=== PATIENT | female | born 1950 | race Caucasian/White ===

== ENCOUNTER 2018-05-21 12:21 | Emergency (ER) | payer MEDICARE ==
[~2018-05-21] VITALS: Ht 165.1 cm; Wt 54.4 kg
[2018-05-21 12:59] LABS: BASOPHILS % (AUTO) 0.1 % (0-1); EOSINOPHILS # (AUTO) 0.2 X10'3 (0-0.9); EOSINOPHILS % (AUTO) 1.4 % (0-6); HEMATOCRIT 37.5 % (35.0-45.0); LYMPHOCYTES # (AUTO) 0.7 X10'3 (1.1-4.8); LYMPHOCYTES % (AUTO) 4.3 % (21-51); MEAN CORPUSCULAR HEMOGLOBIN 29.5 PG (27.0-31.0); MEAN CORPUSCULAR HGB CONC 34.7 % (33.0-36.5); MEAN CORPUSCULAR VOLUME 84.9 FL (78-98); MONOCYTES # (AUTO) 0.4 X10'3 (0-0.9); MONOCYTES % (AUTO) 2.3 % (2-12); NEUTROPHILS # (AUTO) 15.4 X10'3 (1.8-7.7); NEUTROPHILS % (AUTO) 91.9 % (42-75); PLATELET COUNT 296 X10'3 (140-440); RED BLOOD COUNT 4.41 X10'6 (4.20-5.60); WHITE BLOOD COUNT 16.8 X10'3 (4.5-11.0)
[2018-05-21 13:05] LABS: CLARITY,URINE CLEAR (Clear); COLOR,URINE YELLOW (Yellow); GLUCOSE, URINE NEGATIVE (Neg); KETONES,URINE NEGATIVE (Neg); LEUKOCYTE ESTERASE ,URINE TRACE (Neg); NITRITES, URINE NEGATIVE (Neg); OCCULT BLOOD,URINE TRACE-INTACT (Neg); PROTEIN,URINE NEGATIVE (Neg); UROBILINOGEN,URINE 0.2 E.U/dL (0.2-1.0)
[2018-05-21 13:22] LABS: ALANINE AMINOTRANSFERASE 28 U/L (12-78); ALBUMIN 3.7 G/DL (3.4-5.0); ALKALINE PHOSPHATASE 89 IU/L (46-116); ANION GAP 10 (8-16); ASPARTATE AMINO TRANSFERASE 27 U/L (10-37); BILIRUBIN,TOTAL 0.5 MG/DL (0.1-1.0); BLOOD UREA NITROGEN 16 MG/DL (7-18); BUN/CREATININE RATIO 20.8 (6.6-38.0); CALCIUM 8.8 MG/DL (8.5-10.1); CHLORIDE 103 MMOL/L (99-107); CREATININE 0.77 MG/DL (0.40-0.90); GLUCOSE 105 MG/DL (70-104); POTASSIUM 4.1 MMOL/L (3.5-5.1); SODIUM 140 MMOL/L (135-145); TOTAL CARBON DIOXIDE 26.7 MMOL/L (24-32); eGFR 75 ML/MIN
[2018-05-21 13:26] LABS: UA COLLECTION TYPE CLN CATCH MIDSTREAM
[2018-05-21 13:27] LABS: BACTERIA,URINE FEW /HPF (Neg); MUCUS STRANDS FEW /LPF (Neg); RBC,URINE 0-2 /HPF (0-2); SQUAMOUS EPITHELIAL CELL,UR FEW /LPF (FEW)
[2018-05-21 13:36] LABS: ALBUMIN/GLOBULIN RATIO 1.1 (1.1-1.5); TOTAL PROTEIN 7.1 G/DL (6.4-8.2)
[2018-05-21] MEDS ORDERED: normal saline 1000ML IV soln IVB ONE (13:40)
[2018-05-21] MEDS ORDERED: ketorolac trometh. 30mg/ml inj. IV ONE (13:40)
[2018-05-21] MEDS ORDERED: ibuprofen 200mg tablet PO ONE ×2 (14:35→14:45)
[2018-05-21] MEDS ORDERED: CefTRIAXone 2gm/D5W 50ml 50 ML IV ONE (14:50)
[2018-05-21 15:55] VITALS: BP 141/62
[2018-05-21] MEDS ORDERED: CEPH500C5 PO ×2 (16:20→16:24)
[2018-05-21] MEDS ORDERED: ONDA4TAB12 PO (16:26)
== END 2018-05-21 16:51 | disposition home or self-care (01) ==
LOC: ER 12:21
DX: N39.0 Urinary tract infection, site not specified (principal); Z79.2 Long term (current) use of antibiotics; Z79.899 Other long term (current) drug therapy
CPT/HCPCS: 36415; 71045; 80053; 81001; 83605; 84145; 85025; 87040; 87088; 96365; 96375; 99285; J0696; J1885; J7030

== ENCOUNTER 2020-09-10 13:15 | Observation (INO) | payer MEDICARE ==
[~2020-09-10] VITALS: Ht 165.1 cm; Wt 49.5 kg
[~2020-09-10 13:15] MED LIST: ONDA4TAB12 PO
[2020-09-10] MEDS ORDERED: ondansetron/PF 4mg/2ml inj IV ONE ×2 (15:45→17:15)
[2020-09-10] MEDS ORDERED: ketorolac trometh. 30mg/ml inj. IV ONE (15:45)
[2020-09-10] MEDS ORDERED: normal saline 1000ML IV soln IVB ONE (15:45)
--- NOTE | 2020-09-10 15:56 | NUR ---
pt ambulated to ct with activities counselor
--- NOTE | 2020-09-10 16:04 | NUR ---
returns from ct
[2020-09-10 16:14] LABS: BASOPHILS % (AUTO) 0.1 % (0-1); EOSINOPHILS % (AUTO) 0 % (0-6); HEMATOCRIT 40.2 % (35.0-45.0); HEMOGLOBIN 13.4 g/dl (12.0-16.0); LYMPHOCYTES # (AUTO) 0.4 X10'3 (1.1-4.8); LYMPHOCYTES % (AUTO) 3.9 % (21-51); MEAN CORPUSCULAR HEMOGLOBIN 29.9 PG (27.0-31.0); MEAN CORPUSCULAR HGB CONC 33.4 g/dL (33.0-36.5); MEAN CORPUSCULAR VOLUME 89.4 FL (78-98); MEAN PLATELET VOLUME 7.6 FL (7.4-10.4); MONOCYTES # (AUTO) 0.3 X10'3 (0-0.9); MONOCYTES % (AUTO) 2.4 % (2-12); NEUTROPHILS # (AUTO) 10.6 X10'3 (1.8-7.7); NEUTROPHILS % (AUTO) 93.6 % (42-75); PLATELET COUNT 216 X10'3 (140-440); RED CELL DISTRIBUTION WIDTH 13.1 % (11.5-14.5); WHITE BLOOD COUNT 11.3 X10'3 (4.5-11.0)
[2020-09-10 16:24] LABS: CLARITY,URINE CLOUDY (Clear); COLOR,URINE ORANGE (Yellow)
[2020-09-10 16:27] LABS: ALANINE AMINOTRANSFERASE 21 U/L (12-78); ALBUMIN 3.8 G/DL (3.4-5.0); ALBUMIN/GLOBULIN RATIO 1.2 (1.1-1.5); ALKALINE PHOSPHATASE 86 IU/L (46-116); ANION GAP 12 (8-16); ASPARTATE AMINO TRANSFERASE 27 U/L (10-37); BILIRUBIN,TOTAL 0.9 MG/DL (0.1-1.0); BLOOD UREA NITROGEN 18 MG/DL (7-18); BUN/CREATININE RATIO 19.8 (6.6-38.0); CALCIUM 9.2 MG/DL (8.5-10.1); CHLORIDE 104 MMOL/L (99-107); CREATININE 0.91 MG/DL (0.40-0.90); GLUCOSE 89 MG/DL (70-104); LIPASE 153 U/L (73-393); POTASSIUM 3.4 MMOL/L (3.5-5.1); SODIUM 140 MMOL/L (135-145); TOTAL CARBON DIOXIDE 24.1 MMOL/L (24-32); eGFR 61 ML/MIN
[2020-09-10 16:28] LABS: UA COLLECTION TYPE URINAL
[2020-09-10 16:31] LABS: BACTERIA,URINE 4+ /HPF (Neg); MUCUS STRANDS FEW /LPF (Neg); SQUAMOUS EPITHELIAL CELL,UR FEW /LPF (FEW); WBC,URINE TNTC /HPF (0-4)
[2020-09-10] MEDS ORDERED: levoFLOXACIN-Levaquin 500mg/D5 100 ML IV ONE (17:15)
[2020-09-10] MEDS ORDERED: HYDROmorphone 1 mg/ml syringe IV ONE (17:15)
[2020-09-10] MEDS ORDERED: NO HOME MEDS (18:35)
[2020-09-10] MEDS ORDERED: magnesium 2GM in 50ml NS 50 ML IV PRN (19:25)
[2020-09-10] MEDS ORDERED: acetaminophen 325mg tablet PO PRN (19:25)
[2020-09-10] MEDS ORDERED: ondansetron/PF 4mg/2ml inj IV PRN (19:25)
[2020-09-10] MEDS ORDERED: morphine 2 MG/ML inj. syringe IV PRN ×2 (19:25→21:25)
[2020-09-10] MEDS ORDERED: potassium Cl 20 mEq SR tablet PO PRN (19:25)
[2020-09-10] MEDS ORDERED: HYDROcodone/acetaminophen 5mg/325mg tablet PO PRN (19:25)
[2020-09-10] MEDS ORDERED: magnesium 4gm in 100ml NS 100 ML IV PRN (19:25)
[2020-09-10] MEDS ORDERED: magnesium Cl slow-release 64mg tablet PO PRN (19:25)
[2020-09-10] MEDS ORDERED: potassium Cl 40MEQ/1/2NS 520ml 520 ML IV PRN ×2 (19:25)
[2020-09-10 21:00] VITALS: BP 101/57
--- NOTE | 2020-09-10 21:00 | NUR ---
Patient placed into bed. Bed in low and locked position. Call light placed within reach.
[2020-09-10] MEDS: normal saline 1000ml 1,000 ML IV SCH (21:14)
[2020-09-10] MEDS: morphine 4 MG/ML inj SYRINge IV PRN (21:33)
[2020-09-10] MEDS: potassium Cl 20 mEq SR tablet PO PRN (21:35)
[2020-09-10] MEDS: tamsulosin 0.4mg capsule PO SCH (21:35)
[2020-09-10] MEDS: K and/or MAG REPLACEMENT MC SCH (21:36)
[2020-09-10] MEDS: CefTRIAXone/D5W-Rocephin 1gm 50 ML IV SCH (21:37)
[2020-09-11] VITALS (18 sets, daily range): BP systolic 87–100; BP diastolic 36–65
[2020-09-11] MEDS: morphine 4 MG/ML inj SYRINge IV PRN ×6 (00:59→16:13)
[2020-09-11] MEDS: potassium Cl 20 mEq SR tablet PO PRN (01:05)
[2020-09-11] MEDS: normal saline 1000ml 1,000 ML IV SCH ×3 (06:38→20:58)
--- NOTE | 2020-09-11 06:38 | NUR ---
Problems reprioritized. Patient report given, questions answered & plan of care reviewed with Karolyn MCDOWELL.
[2020-09-11 06:47] LABS: BASOPHILS % (AUTO) 0.2 % (0-1); EOSINOPHILS % (AUTO) 0.1 % (0-6); HEMOGLOBIN 10.2 g/dl (12.0-16.0); LYMPHOCYTES # (AUTO) 0.6 X10'3 (1.1-4.8); LYMPHOCYTES % (AUTO) 5.5 % (21-51); MEAN CORPUSCULAR HEMOGLOBIN 30.4 PG (27.0-31.0); MEAN CORPUSCULAR VOLUME 89.4 FL (78-98); MONOCYTES # (AUTO) 0.7 X10'3 (0-0.9); NEUTROPHILS # (AUTO) 9.9 X10'3 (1.8-7.7); NEUTROPHILS % (AUTO) 88.2 % (42-75); PLATELET COUNT 180 X10'3 (140-440); RED BLOOD COUNT 3.35 X10'6 (4.20-5.60); RED CELL DISTRIBUTION WIDTH 13.2 % (11.5-14.5); WHITE BLOOD COUNT 11.2 X10'3 (4.5-11.0)
--- NOTE | 2020-09-11 06:48 | NUR ---
Patient in room [facility] 344A. I have received report from JEREMIAS CONKLIN and had the opportunity to ask questions and assume patient care.
[2020-09-11 06:58] LABS: ALBUMIN 2.5 G/DL (3.4-5.0); ANION GAP 6 (8-16); BLOOD UREA NITROGEN 19 MG/DL (7-18); CALCIUM 7.9 MG/DL (8.5-10.1); CHLORIDE 109 MMOL/L (99-107); CREATININE 0.73 MG/DL (0.40-0.90); GLUCOSE 97 MG/DL (70-104); MAGNESIUM 1.7 MG/DL (1.5-2.4); POTASSIUM 4.3 MMOL/L (3.5-5.1); SODIUM 140 MMOL/L (135-145); TOTAL CARBON DIOXIDE 24.9 MMOL/L (24-32); eGFR 79 ML/MIN
[2020-09-11] MEDS: CefTRIAXone/D5W-Rocephin 1gm 50 ML IV SCH (07:50)
[2020-09-11] MEDS: K and/or MAG REPLACEMENT MC SCH ×2 (08:00→20:00)
[2020-09-11] MEDS ORDERED: FLU VACC QS2020-21(6MOS UP)/PF 60 MCG/0.5 ML SYRINGE IMVAC ONE (10:00)
--- NOTE | 2020-09-11 14:35 | NUR ---
Low BMI trigger: BMI 18.2. Pt pending scaled wt this admit w/ normal strength and appears well-developed/wellnourished per ER note. To f/u 09/15 for initial assessment. Addendum: 09/11/20 at [address] Amended: Links added.
[2020-09-11] MEDS ORDERED: proCHLORperazine 10 MG/2 ml inj IV PRN (16:00)
[2020-09-11] MEDS ORDERED: morphine 4 MG/ML inj SYRINge IV PRN (16:00)
[2020-09-11] MEDS ORDERED: morphine 2 MG/ML inj. syringe IV PRN (16:00)
[2020-09-11] MEDS ORDERED: meperidine/PF 25mg/ml syringe IV PRN ×3 (16:00)
[2020-09-11] MEDS ORDERED: hydrALAZINE 20mg/ml inj. IV PRN (16:00)
[2020-09-11] MEDS ORDERED: ondansetron/PF 4mg/2ml inj IV PRN (16:00)
[2020-09-11] MEDS ORDERED: labetalol 20mg/4ml (5mg/ml) syringe IV PRN (16:00)
[2020-09-11] MEDS ORDERED: acetaminophen 1,000mg/100ml IV 100 ML IV PRN (16:00)
[2020-09-11] MEDS ORDERED: ringers solution, lacted 1,000 ML IV SCH (16:00)
[2020-09-11] MEDS ORDERED: dextrose 50%-water 50ml dispensing syringe IV ONE (16:46)
[2020-09-11] MEDS ORDERED: dextrose 50%-water 50ml dispensing syringe IV PRN ×2 (16:50)
[2020-09-11] MEDS ORDERED: dextrose ORAL solution 15 GM/59 ML bottle PO PRN ×2 (16:50)
--- NOTE | 2020-09-11 16:52 | NUR ---
PATIENT HAD A BLOOD SUGAR OF 61, GAVE 25MG OF DEXTROSE AND IMMEDATLY SENT PATIENT TO OR WITH INSTRUCTIONS TO RECHECK BLOOD SUGAR IN 10 MINS
--- NOTE | 2020-09-11 16:55 | NUR ---
Problems reprioritized. Patient report given, questions answered & plan of care reviewed with JEREMIAS MILLER IN RECOVERY.
[2020-09-11] MEDS ORDERED: sevoflurane 250ml liquid IH ONE (17:28)
[2020-09-11] MEDS ORDERED: midazolam 2 mg/2 ml injection ONE (17:32)
[2020-09-11] MEDS ORDERED: fentaNYL/PF 50MCG/1 ML 2ML syringe ONE (17:32)
[2020-09-11] MEDS ORDERED: LIDOcaine 2% (20mg/ml) 5ml vial ONE (17:46)
[2020-09-11] MEDS ORDERED: propofol inj 20 ML IV ONE (17:46)
[2020-09-11] MEDS ORDERED: 0.9 % SODIUM CHLORIDE 10 ML VIAL ONE (17:47)
[2020-09-11] MEDS ORDERED: ePHEDrine 50MG/ML INJ. ONE (17:47)
[2020-09-11] MEDS ORDERED: dexamethasone sod phosphate 4mg/ml inj. ONE (18:03)
[2020-09-11] MEDS ORDERED: ondansetron/PF 4mg/2ml inj ONE (18:03)
--- NOTE | 2020-09-11 18:29 | NUR ---
Received from OR via BED, accompanied by Anesthesiologist DR COLBY and report given by Anesthesiologist. AWAKES TO VOICE COMMAND. SLEEPING INTERMITTENTLY. VSS, PER REPORT FROM EDGARDO HERNANDEZ RN - PT'S HR MID 90'S AND BP 90'S/50'S PRE-OP. IV RT FA #20 WIT LR @ 100MLS/HR. SCD'S BILAT. ABD SOFT AND NONTENDER Addendum: 09/11/20 at 1844 by Ruth Kumari RN Amended: Links added.
--- NOTE | 2020-09-11 18:34 | NUR ---
Problems reprioritized. Patient report given, questions answered & plan of care reviewed with JEREMIAS REDDY.
--- NOTE | 2020-09-11 18:35 | NUR ---
5Patient in room [facility] 344. I have received report from Karolyn MCDOWELL and had the opportunity to ask questions and assume patient care. Addendum: 09/11/20 at 2201 by Yuli Oakes RN Patient is currently in the OR. Awaiting recovery report.
[2020-09-11 18:39] LABS: % IRON SATURATION 32 % (11-46); IRON 87 UG/DL (49-151); TOTAL IRON BINDING CAPACITY 272 UG/DL (259-388)
--- NOTE | 2020-09-11 19:00 | NUR ---
Will start out on clears and progress from there. Addendum: 09/11/20 at 2204 by Yuli Oakes RN Amended: Links added.
--- NOTE | 2020-09-11 19:04 | NUR ---
Recovery called with report. Pt. to follow in 15 mins.
--- NOTE | 2020-09-11 19:19 | NUR ---
SLEEPING, AWAKENS EASILY. DENIES PAIN. NO BLEEDING NOTED. VSS COMPARED TO PRE-OP BASELINE. ABD SOFT. IV PATENT. REPORT GIVEN TO BARRY MCDOWELL WITH ALL QUESTIONS ANSWERED. TRANSPORTED VIA BED TO [facility] [place] WITH BARRY PRESENT TO RECEIVE PT. Addendum: 09/11/20 at 1930 by Ruth Kumari RN Amended: Links added.
--- NOTE | 2020-09-11 19:20 | NUR ---
Patient arrived to floor via bed and situated back into room. Alert, sleepy, denies having any pain at this time. Post op VS initiated.
[2020-09-11] MEDS: tamsulosin 0.4mg capsule PO SCH (20:55)
[2020-09-11] MEDS: lactobacillus rhamnosus 10,000 MMU CELLS/CAPSULE PO SCH (20:55)
[2020-09-12] VITALS: BP 94/55
[2020-09-12 04:00] VITALS: BP 95/54
[2020-09-12] MEDS: morphine 4 MG/ML inj SYRINge IV PRN ×2 (04:23→08:07)
[2020-09-12 05:49] LABS: BASOPHILS % (AUTO) 0 % (0-1); EOSINOPHILS % (AUTO) 0 % (0-6); HEMATOCRIT 30.4 % (35.0-45.0); HEMOGLOBIN 10.2 g/dl (12.0-16.0); LYMPHOCYTES # (AUTO) 0.5 X10'3 (1.1-4.8); LYMPHOCYTES % (AUTO) 6.5 % (21-51); MEAN CORPUSCULAR HEMOGLOBIN 30.1 PG (27.0-31.0); MEAN CORPUSCULAR HGB CONC 33.5 g/dL (33.0-36.5); MEAN CORPUSCULAR VOLUME 89.8 FL (78-98); MEAN PLATELET VOLUME 8.1 FL (7.4-10.4); MONOCYTES # (AUTO) 0.2 X10'3 (0-0.9); MONOCYTES % (AUTO) 2.7 % (2-12); NEUTROPHILS # (AUTO) 6.4 X10'3 (1.8-7.7); NEUTROPHILS % (AUTO) 90.8 % (42-75); PLATELET COUNT 170 X10'3 (140-440); RED BLOOD COUNT 3.39 X10'6 (4.20-5.60); RED CELL DISTRIBUTION WIDTH 13.3 % (11.5-14.5)
[2020-09-12] MEDS: normal saline 1000ml 1,000 ML IV SCH ×2 (05:51→05:52)
[2020-09-12 05:53] LABS: ALBUMIN 2.5 G/DL (3.4-5.0); ANION GAP 8 (8-16); BLOOD UREA NITROGEN 13 MG/DL (7-18); CALCIUM 8.7 MG/DL (8.5-10.1); CHLORIDE 109 MMOL/L (99-107); CREATININE 0.65 MG/DL (0.40-0.90); GLUCOSE 186 MG/DL (70-104); MAGNESIUM 1.8 MG/DL (1.5-2.4); POTASSIUM 4.8 MMOL/L (3.5-5.1); SODIUM 140 MMOL/L (135-145); TOTAL CARBON DIOXIDE 23.5 MMOL/L (24-32); eGFR > 90 ML/MIN
--- NOTE | 2020-09-12 06:35 | NUR ---
Patient in room [facility] 344. I have received report from Yuli MCDOWELL and had the opportunity to ask questions and assume patient care.
--- NOTE | 2020-09-12 06:44 | NUR ---
Problems reprioritized. Patient report given, questions answered & plan of care reviewed with Shikha MCDOWELL.
[2020-09-12 07:22] VITALS: BP 99/47
[2020-09-12] MEDS: K and/or MAG REPLACEMENT MC SCH ×2 (08:00→18:57)
[2020-09-12] MEDS: CefTRIAXone/D5W-Rocephin 1gm 50 ML IV SCH (08:05)
[2020-09-12] MEDS: lactobacillus rhamnosus 10,000 MMU CELLS/CAPSULE PO SCH ×2 (08:05→19:19)
[2020-09-12] MEDS ORDERED: CIPR-230 PO (10:38)
[2020-09-12] MEDS ORDERED: tamsulosin capsule PO (10:38)
[2020-09-12 11:00] VITALS: BP 109/52
[2020-09-12] MEDS ORDERED: oxyCODONE/APAP 5-325mg tablet PO PRN (12:00)
--- NOTE | 2020-09-12 13:37 | NUR ---
PAGER ID: [phone] MESSAGE: Heather Trevino [id number]- Pt wants to try tramadol for pain instead of Percocet. Can she try it please. Thank you. Shikha [phone]
--- NOTE | 2020-09-12 18:13 | NUR ---
Problems reprioritized. Patient report given, questions answered & plan of care reviewed with Yuli MCDOWELL.
--- NOTE | 2020-09-12 18:30 | NUR ---
Patient in room [facility] 344. I have received report from Shikha MCDOWELL and had the opportunity to ask questions and assume patient care.
[2020-09-12] MEDS: traMADol 50MG tablet PO PRN (19:49)
--- NOTE | 2020-09-12 19:51 | NUR ---
Pt. c/o stinging after wiping. Pt. has a very fine reddened line on inner labia lip. Calazime cream applied for protection and comfort. Addendum: 09/12/20 at 2241 by Yuli Oakes RN Amended: Links added.
[2020-09-12 20:00] VITALS: BP 121/67
[2020-09-12] MEDS: tamsulosin 0.4mg capsule PO SCH (21:11)
[2020-09-12 23:57] VITALS: BP 123/63
[2020-09-13] MEDS: normal saline 1000ml 1,000 ML IV SCH (01:50)
--- NOTE | 2020-09-13 06:16 | NUR ---
Problems reprioritized. Patient report given, questions answered & plan of care reviewed with Real MCDOWELL.
[2020-09-13 06:35] LABS: BASOPHILS % (AUTO) 0 % (0-1); EOSINOPHILS % (AUTO) 0.1 % (0-6); HEMATOCRIT 32.2 % (35.0-45.0); HEMOGLOBIN 10.9 g/dl (12.0-16.0); LYMPHOCYTES # (AUTO) 1.4 X10'3 (1.1-4.8); LYMPHOCYTES % (AUTO) 16.1 % (21-51); MEAN CORPUSCULAR HEMOGLOBIN 30.2 PG (27.0-31.0); MEAN CORPUSCULAR HGB CONC 33.7 g/dL (33.0-36.5); MEAN CORPUSCULAR VOLUME 89.4 FL (78-98); MEAN PLATELET VOLUME 8.6 FL (7.4-10.4); MONOCYTES # (AUTO) 0.4 X10'3 (0-0.9); MONOCYTES % (AUTO) 4.7 % (2-12); NEUTROPHILS # (AUTO) 7.1 X10'3 (1.8-7.7); NEUTROPHILS % (AUTO) 79.1 % (42-75); PLATELET COUNT 226 X10'3 (140-440); RED CELL DISTRIBUTION WIDTH 13.6 % (11.5-14.5)
[2020-09-13 06:40] LABS: ALBUMIN 2.5 G/DL (3.4-5.0); ANION GAP 5 (8-16); BLOOD UREA NITROGEN 12 MG/DL (7-18); BUN/CREATININE RATIO 14.6 (6.6-38.0); CHLORIDE 111 MMOL/L (99-107); CREATININE 0.82 MG/DL (0.40-0.90); GLUCOSE 107 MG/DL (70-104); MAGNESIUM 1.8 MG/DL (1.5-2.4); POTASSIUM 3.7 MMOL/L (3.5-5.1); SODIUM 144 MMOL/L (135-145); TOTAL CARBON DIOXIDE 27.8 MMOL/L (24-32); eGFR 69 ML/MIN
[2020-09-13 06:51] LABS: CALCIUM 8.6 MG/DL (8.5-10.1)
[2020-09-13 07:00] VITALS: BP 116/59
[2020-09-13] MEDS: lactobacillus rhamnosus 10,000 MMU CELLS/CAPSULE PO SCH (07:30)
[2020-09-13] MEDS: CefTRIAXone/D5W-Rocephin 1gm 50 ML IV SCH (07:30)
[2020-09-13] MEDS: traMADol 50MG tablet PO PRN (07:30)
[2020-09-13] MEDS: K and/or MAG REPLACEMENT MC SCH (08:00)
[2020-09-13 11:00] VITALS: BP 96/51
--- NOTE | 2020-09-13 11:11 | NUR ---
Discharge instructions given to patient, patient verbalized understanding of all instructions made. Peripheral IV catheter removed, tip intact. Own meds [place] stored in the pharmacy returned to patient. New prescription e-sent to pharmacy.. Instructed patient to ensure she all his belongings with her before leaving. Patient said she has pocket knife in the safe. I called security, I was told patient will need to stop by at the front lobby to pick it up, patient was informed about this. Awaiting for the ride
== END 2020-09-13 11:35 | disposition home or self-care (01) ==
LOC: ER 13:15 → ED HOLD 18:22 → SUR 3N 21:08
PROVIDERS: ADMIT Internal Medicine; ATTEND Internal Medicine
DX: N20.2 Calculus of kidney with calculus of ureter (principal); Z20.828 Contact with and (suspected) exposure to other viral communicable diseases; N13.6 Pyonephrosis; R10.32 Left lower quadrant pain; N39.0 Urinary tract infection, site not specified; E87.6 Hypokalemia; B96.20 Unspecified Escherichia coli [E. coli] as the cause of diseases classified elsewhere; D64.9 Anemia, unspecified; G89.29 Other chronic pain; Z23 Encounter for immunization; Z79.899 Other long term (current) drug therapy
CPT/HCPCS: 36415; 52320; 52332; 71045; 74176; 80048; 80053; 81001; 82948; 83540; 83550; 83690; 83735; 85025; 87077; 87081; 87088; 87186; 87635; 93005; 96361; 96365; 96366; 96367; 96375; 96376; 99284; C1769; C2617; G0008; G0378; J0696; J1100; J1170; J1885; J1956; J2001; J2250; J2270; J2405; J2704; J3010; J7030; Q2039; 88300; A4618

== ENCOUNTER 2025-07-17 00:49 | Emergency (ER) | payer MEDICARE, MEDICAID ==
[~2025-07-17] VITALS: Ht 162.6 cm; Wt 65.0 kg
[~2025-07-17 00:49] MED LIST changes: +NO HOME MEDS; -ONDA4TAB12 PO; +tamsulosin capsule PO
[2025-07-17 00:54] VITALS: PULSE 82; RESP 15; TEMP 97.3; O2SAT 97
[2025-07-17 01:48] LABS: MEAN PLATELET VOLUME 7.7 FL (7.4-10.4); RED CELL DISTRIBUTION WIDTH 13.3 % (11.5-14.5)
[2025-07-17 02:17] LABS: CREATININE 0.58 MG/DL (0.40-0.90); TOTAL CARBON DIOXIDE 28.0 MMOL/L (24-32); eCRCL 76 ML/MIN; eGFR > 90 ML/MIN
--- NOTE | 2025-07-18 04:01 | Physician Documentation ---
History of Present Illness General Chief Complaint: Abdominal Pain w/vomiting Stated Complaint: BACK PAIN Time Seen by MD: 02:35 History of Present Illness Initial Comments This is a 74-year-old female who presented for evaluation of mid abdominal pain and vomiting. I did not see this patient, I added my name and signed up for her with the intent of seeing her. However, the patient informed nursing staff that she is tired of waiting and that she is going to [facility] to receive care there. By then her results were ready, and nursing staff attempted to convince her to stay. The patient declined and left. Medical Decision Making Additional information obtaine: N/A Findings This is a 74-year-old woman who presented for evaluation of abdominal pain. Hemodynamics reviewed. She was not tachycardic, not febrile, no evidence of respiratory distress. Her laboratory studies showed normal CBC, chemistry was notable for elevated BUN/creatinine ratio of 46. Her lipase was elevated at 116. Liver function was normal. Imaging was ordered by myself but not done because patient left. The patient clearly has a medical decision-making capacity, and while she does have a medical problem with the likely diagnosis of acute pancreatitis, she has a ability to leave against medical advice/without being seen. Differential Diagnosis Differential diagnosis considered includes acute appendicitis, acute cholecystitis, pancreatitis, gastritis, PUD, diverticulitis, mesenteric ischemia, abdominal aortic aneurysm, bowel obstruction, enteritis, colitis, fecal impaction, volvulus, IBS, inflammatory bowel disease, specific food intolerance, peritonitis, perforated viscous, malignancy, UTI, abscess, and abdominal pain NOS. Pelvic source of pain was also considered including endometritis, dysmenorrhea, ovarian cyst, ovarian torsion, PID, TOA, cervicitis, vaginitis, or uterine fibroid. History, physical exam, and workup exclude many of the more serious causes listed above. Departure Disposition: LEFT WITHOUT BEING SEEN Impression: Primary Impression: Pancreatitis Referrals: NO PRIMARY CARE PROVIDER (PCP) Signature Scribe Signature: No scribe Attestation: This note accurately reflects clinical decisions, work performed by myself, DO MED Galindo NICHOLAS M DO Jul 18, 2025 04:01
== END 2025-07-17 03:12 | disposition left against medical advice (07) ==
LOC: ER 00:50
DX: K85.90 Acute pancreatitis without necrosis or infection, unspecified (principal)
CPT/HCPCS: 36415; 80053; 83690; 85025; 99281